=== PATIENT | male | born 1960 | race Caucasian/White ===

== ENCOUNTER 2023-07-09 09:04 | Emergency (ER) | payer OTHER, SELFPAY ==
[2023-07-09 09:14] VITALS: BP 145/88; PULSE 65; RESP 16; TEMP 36.5; O2SAT 100
--- NOTE | 2023-07-09 09:36 | ED.URI ---
HPI - URI/Sore Throat General Chief Complaint: Upper Respiratory Infection Stated Complaint: Congestion Source: patient and RN notes reviewed Mode of arrival: ambulatory Limitations: no limitations History of Present Illness HPI Narrative: 63-year-old male with a history of hypertension presented for complaint of sinus congestion and cough over 1 week. Taking rani seltzer. Denies sob, wheezing, n/v/d/f/c. Smokes 1 ppd. Hx [place], stents. MD elicited complaint: cough Related Data Home Medications Medication Instructions Recorded Confirmed aspirin 81 mg tablet,delayed 81 mg PO DAILY 01/28/20 07/09/23 release (Adult Low Dose Aspirin) metoprolol succinate 100 mg 150 mg PO DAILY 01/28/20 07/09/23 tablet,extended release 24 hr evolocumab 140 mg/mL subcutaneous 140 mg subcut ONCE 11/08/20 07/09/23 pen injector (Repatha SureClick) clopidogrel 75 mg tablet 75 mg PO DAILY 07/09/23 07/09/23 furosemide 20 mg tablet 20 mg PO DAILY 07/09/23 07/09/23 lisinopril 20 mg tablet 20 mg PO DAILY 07/09/23 07/09/23 Allergies Allergy/AdvReac Type Severity Reaction Status Date / Time No Known Allergies Allergy Verified 07/09/23 09:40 Review of Systems Review of Systems: CONSTITUTIONAL: Denies malaise, chills, sweats, fever EYES: Denies visual changes, redness, or discharge ENT: Reports rhinorrhea, congestion, sinus pain, denies otalgia, sore throat CARDIOVASCULAR: Denies chest pain, palpitations, edema RESPIRATORY: Reports cough, post nasal drainage. Denies dyspnea GASTROINTESTINAL: Denies abdominal pain, nausea, vomiting, diarrhea SKIN: Denies rash or itching MUSCULOSKELETAL: Denies myalgia [facility] Past Medical History Medical History (Updated 07/09/23 @ 09:52 by Priscilla Proctor APRN) Acute bacterial sinusitis BMI 28.0-28.9,adult CAD (coronary artery disease) Essential (primary) hypertension Screen for colon cancer Screening for prostate cancer Tobacco abuse Surgical History Surgical History (Updated 07/09/23 @ 09:52 by Priscilla Proctor APRN) History of PTCA Family History Family History Father Hypertension Family history of elevated blood lipids Cerebrovascular accident Mother Hypertension Family history of diabetes mellitus in first degree relative Family history of coronary artery disease Social History Social History Smoking packs per day: 1.5 Smoking cigarettes per day: 30.0 Years smoked: 30 Smoking pack-years: 45.00 Smoking status: Current every day smoker Tobacco type: cigarettes Alcohol intake: current Drinks per week: 4 Substance use: current Substance use type: marijuana Living arrangements: with family Occupation/Education: occupation Gender identity (if verbalized by the patient): Male Exam Narrative: GENERAL: Mildly Ill-appearing, nontoxic no acute distress. EYES: PERRLA, conjunctivae clear ENT: Mucous membranes moist. Nasal congestion. TM pearly bryant with dull light reflex bilaterally; no tragal tenderness. Oropharynx not erythematous without lesions or exudate, no drooling, no hoarseness, no trismus, uvula midline. No tripod positioning, muffled voice, soft palate or pharyngeal wall bulging NECK: Supple. No lymphadenopathy CHEST: Left lower lobe wheezing noted. Otherwise clear throughout. HEART: Regular rate and rhythm. No murmur heard. SKIN: Warm, dry, no rash. NEURO: Alert and oriented x3. PSYCH: Normal mood and affect Course Course Emergency Course: Patient is aware of diagnosis, understands and agrees to treatment plan. Anticipatory guidance given. Patient agrees to follow-up as directed and is aware of reasons to seek care at the emergency department. Portions of this record may have been created with voice recognition software Level of Care: Express Care Visit Vital Signs Vital signs: Vital Signs Temperat
== END 2023-07-09 09:51 | disposition home or self-care (01) ==
PROVIDERS: Emergency Provider Nurse Practitioner Family; PCP Family Medicine
DX: J06.9 Acute upper respiratory infection, unspecified (principal); F17.210 Nicotine dependence, cigarettes, uncomplicated; F12.90 Cannabis use, unspecified, uncomplicated; I25.10 Atherosclerotic heart disease of native coronary artery without angina pectoris; I10 Essential (primary) hypertension; Z79.82 Long term (current) use of aspirin; Z95.5 Presence of coronary angioplasty implant and graft
CPT/HCPCS: 99213; G0463

== ENCOUNTER 2024-11-16 15:08 | Emergency (ER) | payer OTHER, SELFPAY ==
[2024-11-16] VITALS (13 sets, daily range): BP systolic 127–158; BP diastolic 69–136; PULSE 62–118; RESP 11–24; TEMP 36.4–36.7; O2SAT 95–98
--- NOTE | ~2024-11-16 | XR_ITS ---
HISTORY: right shoulder pain no injury COMPARISON: None TECHNIQUE: 3 views of the right shoulder were performed FINDINGS: No acute fracture. Multiple well-circumscribed loose bodies are identified within the right glenohumeral joint space, li escobar representing calcific tendinosis. The remainder of the glenohumeral and the acromioclavicular joint space is otherwise maintained The visualized portion of the adjacent right lung is clear. The humeral head is well seated within the glenoid fossa. IMPRESSION: Likely calcific tendinosis without acute fracture or anterior dislocation. Reviewed, dictated and finalized at location A.
--- NOTE | ~2024-11-16 | XR_ITS ---
CHEST RADIOGRAPH, PA AND LATERAL CLINICAL HISTORY: chest tightness . COMPARISON: 10/21/2017 TECHNIQUE: PA and lateral views of the chest. FINDINGS The cardiomediastinal silhouette is unremarkable. Biapical scarring, unchanged. Interval development of multiple asymmetries within the bilateral lung sliver, when compared with 201 8 examination for which cross-sectional imaging (noncontrast enhanced CT examination of the chest) is recommended for further evaluation. IMPRESSION: No focal infiltrate or effusion. Interval development of multiple pulmonary asymmetries within the bilateral lung silver, when compare d with 2018 examination for which cross-sectional imaging (noncontrast enhanced CT examination of the chest) is recommended for further evaluation. Reviewed, dictated and finalized at location A. IMPRESSION: No focal infiltrate or effusion. Interval development of multiple pulmonary asymmetries within the bilateral isaiah g silver, when compared with 2018 examination for which cross-sectional imaging (noncontrast enhanced CT examination of the chest) is recommended for further evaluation.
--- OUTSIDE RECORDS SUMMARY | 2024-11-16 15:17 | XMS_ITS | Clinical Summary ---
Author Organization [facility] [address] Address [address] [place] [address] Care Team Providers Care Hematology Supervisor Name Role Phone Jorje Chavez MD Primary Care Provider + [phone] Rihca Blanton MD Unavailable [phone] Allergies Active Allergy Reactions Criticality Noted Date Comments Atorvastatin Other (See comments) High 07/26/2020 Myalgias, elevated CK Medications multivitamin tablet tablet take 1 tablet by oral route every day with food 0 0 11/22/19 13 Active aspirin 81 mg tablet take 2 Tablet by oral route every day 90 3 11/30/19 12 Active lisinopriL (PRINIVIL,ZESTRIL) 10 mg tablet TAKE 1 TABLET DAILY 90 tablet 06/18/19 20 Active clopidogreL (PLAVIX) 75 mg tabletIndications:m yocardial infarction prevention,cardiova scular disease Take 1 tablet (75 mg total) by mouth daily 30 tablet 11/20/19 21 Active metoprolol XL (TOPROL-XL) 50 mg extended release tablet Take 3 tablets (150 mg total) by mouth daily 90 tablet 11/20/19 21 Active Repatha SureClick 140 mg/mL pen injector ADMINISTER 1 ML UNDER THE SKIN EVERY 2 WEEKS 09/03/19 22 Active metoprolol XL (TOPROL-XL) 100 mg 24 hr tablet 08/07/20 22 Active albuterol HFA (PROVENTIL HFA,VENTOLIN HFA,PROAIR HFA) 90 mcg/actuation inhalerIndications: Acute nasopharyngitis Inhale 2 puffs every 6 (six) hours as needed for wheezing 3 each 4 12/27/19 22 Active Active Problems Problem Noted Date Diagnosed Date Coronary artery disease (CAD) excluded CAD (coronary artery disease) 11/16/2020 Overview (11/16/2020): Added automatically from request for surgery [id number] Immunizations Immunization Administration Dates Next Due Influenza, Quadrivalent, Spl it, Preservative Free, Intramuscular 02/08/2019 Surgical History Surgery Date Site/Laterality Comments OTHER SURGICAL HISTORY Surgical Vision Correction, LASIK Medical History Medical History Date Comments Cardiovascular disease Coronary Artery Disease Hx Other Medical Myocardial Infa rction Non STEMI Chronic obstructive pulmonary disease (HCC) COPD Family History Medical History Relation Name Comments Hypertension Father Hypertension; Heart attack Mother Myocardial Infa rction; Cause of : Myocardial Infarction Heart attack Mother's Brother 2 Myocardia l Infarction; Cause of : Myocardial Infarction Relation Name Status Comments Father Alive Mother (Age 70) Mother's Brother 1 (Age 70) Mother's Brother 2 Social History Tobacco Use Types Packs/Day Years Used Date Smoking Tobacco: Every Day Cigarettes 1 15 Smokeless Tobacco: Never Tobacco Cessation:Ready to Q uit: Not Asked; Counseling Given: Not Answered Alcohol Use Standard Drinks/Week Comments Yes 1 (1 standard drink = 0.6 oz pur e alcohol) Bi-weekly AUDIT-C Answer Date Recorded Q1: How often do you have a drink containing alc ohol? 2-3 times a week 11/18/2020 Q2: How many drinks containi ng alcohol do you have on a typical day when you are drinking? 3 or 4 11/18/2020 Q3: How often do you have si x or more drinks on one occasion? Monthly 11/18/2020 Personal Safety Answer Date Recorded Have you ever been in or are you currently in a harmful physical or emotional relationship or is someone making you feel afraid or unsafe? 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 Gender Identity Not on file Sexual Orientation Not on file Obstetrics History Last Filed Vital Signs Vital Sign Reading Time Taken Comments Blood Pressure 136/72 05/14/2023 10:45 AM DENTAL OFFICE MANAGER Pulse 75 05/14/2023 10:45 AM DENTAL OFFICE MANAGER Temperature 36.8 C (98.2 F) 05/14/2023 11:24 AM DENTAL OFFICE MANAGER Respiratory Rate 14 05/14/2023 10:45 AM DENTAL OFFICE MANAGER Oxygen Saturation 96% 05/14/2023 10:45 AM DENTAL OFFICE MANAGER Inhaled Oxygen Concentration - - Weight 106.6 kg (235 lb) 05/14/2023 8:38 AM DENTAL OFFICE MANAGER Height 193 cm (6' 4) 05/14/2023 8:38 AM DENTAL OFFICE MANAGER Body Mass Index 28.61 05/14/2023 8:38 AM DENTAL OFFICE MANAGER Plan of Treatment Health Maintenance Due Date Last Done Comments Colon Cancer Screening-Colonoscopy 1962 Depression Screening 1962 Hepatitis C Screening 1962 Prostate Cancer Screening-PSA 1962 DTaP/Tdap/Td Vaccine (1 - Tdap) 1973 Hepatitis B Screening 1980 Regular Well Visit/Exam 18-64 1980 Pneumococcal vaccine <65 (1 of 2 - PCV) 1981 Zoster Vaccine (1 of 2) 2012 Covid-19 Vaccine (2 - season) 12/15/202308/2020 Influenza Vaccine (#1) 2024 02/08/2019 Medical Devices Implanted Type Area Sheet Rock Sander Device Identifier Shelf Expiration Date Model / Serial / Lot [employer] [id number] Stent Drug Eluting S [facility] Mr [id number] - [id number] - [id number] Implanted:Qty: 1 on 11/18/2020 by Giorgio Nails MD at [facility] Stent N/A: Coronary [employer] 03/21/2021 [id number] / [id number] / [id number] Description: [employer] [id number] Synergy Xd Monorail 2.5mm 12mm 144cm Delivery System 1 Access - [id number] - [id number] Implanted:Qty: 1 on 11/18/2020 by Giorgio Nails MD at [facility] Stent N/A: Coronary [employer] 07/14/2022 [id number] / [id number] / [id number] Description:Ostial PDA Insurance [facility]/PPO Address: [place] [address] [facility] Address: [address] [place] [address] Advance Directives For more information, please contact: [phone] * Full Code (Latest Code Status on File) Date Activated Date Inactivated Comments 11/18/2020 2:39 PM 11/19/2020 3:42 PM Care Teams Hematology Supervisor Relationship Specialty Start Date End Date Jorje Chavez MD PCP - General 10/05/15 Richa Blanton MD [address] [place] [address] Consulting Physician Cardiovascular Disease 11/19/20
--- OUTSIDE RECORDS SUMMARY | 2024-11-16 15:17 | XMS_ITS | Referral Summary ---
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 Gender Identity Not on file Sexual Orientation Not on file Last Filed Vital Signs Vital Sign Reading Time Taken Comments Blood Pressure 136/72 05/14/2023 10:45 AM ALARM TECHNICIAN Pulse 75 05/14/2023 10:45 AM ALARM TECHNICIAN Temperature 36.8 C (98.2 F) 05/14/2023 11:24 AM ALARM TECHNICIAN Respiratory Rate 14 05/14/2023 10:45 AM ALARM TECHNICIAN Oxygen Saturation 96% 05/14/2023 10:45 AM ALARM TECHNICIAN Inhaled Oxygen Concentration - - Weight 106.6 kg (235 lb) 05/14/2023 8:38 AM ALARM TECHNICIAN Height 193 cm (6' 4) 05/14/2023 8:38 AM ALARM TECHNICIAN Body Mass Index 28.61 05/14/2023 8:38 AM ALARM TECHNICIAN Plan of Treatment Not on file Medical Devices Implanted Type Area Block Breaker Device Identifier Shelf Expiration Date Model / Serial / Lot [employer] [id number] St[facility] [id number] - [id number] - [id number] Implanted:Qty: 1 on 11/18/2020 by Giorgio Nails MD at [facility] Stent N/A: Coronary [employer] 03/21/2021 [id number] / [id number] / [id number] Description:LM [employer] [id number] Synergy Xd Monorail 2.5mm 12mm 144cm Delivery System 1 Access - [id number] - [id number] Implanted:Qty: 1 on 11/18/2020 by Giorgio Nails MD at [facility] Stent N/A: Coronary [employer] 07/14/2022 [id number] / [id number] / [id number] Description:Ostial PDA Insurance [facility] H[facility]/PPO Address: [facility] [address] [place] [id number] [address] [employer] [facility] H[facility]/PPO Address: [place] [address] Advance Directives For more information, please contact: [phone] * Full Code (Latest Code Status on File) Date Activated Date Inactivated Comments 11/18/2020 2:39 PM 11/19/2020 3:42 PM Care Teams Hanger Off Relationship Specialty Start Date End Date Jorje Chavez MD PCP - General 10/05/15 Richa Blanton MD [address] [place] [address] Consulting Physician Cardiovascular Disease 11/19/20
--- NOTE | 2024-11-16 15:24 | ED_ITS ---
HPI - Extremity Problem General Chief complaint: Extremity Problem,Nontraumatic <Dariusz Melendez APRN - Last Filed: 11/16/24 15:33> Stated complaint: R. shoulder, R. arm and R. leg pain <Dariusz Melendez APRN - Last Filed: 11/16/24 15:33> Time Seen by Provider: 11/16/24 19:22 <Dariusz Melendez APRN - Last Filed: 11/16/24 15:33> 64-year-old male presents to the ER complaining of right shoulder pain for approximately 4-5 days. Patient denies any injuries to his right arm or falls. Patient reports pain is constant is worse with certain movements of his right shoulder. He also reports chest tightness today that has been constant of his chest. Patient has a history of CAD status post stents. Patient denies any shortness of breath, jaw pain, left arm pain, nausea, vomiting, or any other symptoms. Patient is a current smoker, he smokes about 1 pack a day. Focused HPI: GENERAL: Well-appearing, well-nourished, and in no acute distress. HEAD: Normocephalic, atraumatic. CHEST: Clear to auscultation. ?No respiratory distress. HEART: Regular rate and rhythm.? NEURO: ?Alert and oriented x3. Patient screened in triage and initial orders placed.? ?Additional care and disposition to be based upon?diagnostic testing and treatment. <Dariusz Melendez APRN - Last Filed: 11/16/24 15:33> History of Present Illness HPI Narrative: Agree with HPI. Also has pain right lower extremity and walks limp. Ongoing over last month. In arm back trauma. Also has some dyspnea on exertion this been ongoing over last month as well. Has been unable to see his cardiology technologist. He is a smoker. <Jason Ibarra MD - Last Filed: 11/16/24 21:31> Related Data Home medications: Home Medications ?Medication ?Instructions ?Recorded ?Confirmed ?Last Taken ?Type metoprolol succinate 100 mg 150 mg PO DAILY 01/28/20 05/10/24 Unknown History tablet,extended release 24 hr evolocumab 140 mg/mL subcutaneous 140 mg subcut ONCE 11/08/20 05/10/24 Unknown History pen injector (Repatha ArashClick) clopidogrel 75 mg tablet 75 mg PO DAILY 07/09/23 05/10/24 Unknown History lisinopril 20 mg tablet 20 mg PO DAILY 07/09/23 05/10/24 Unknown History nicotine 21 mg/24 hr daily 05/10/24 Unknown History transdermal patch aspirin 81 mg tablet,delayed 162 mg PO DAILY 05/25/24 Unknown History release (Adult Low Dose Aspirin) <Dariusz Melendez APRN - Last Filed: 11/16/24 15:33> Allergies/Adverse reactions: Allergies Allergy/AdvReac Type Severity Reaction Status Date / Time No Known Allergies Allergy Verified 11/16/24 15:22 <Dariusz Melendez APRN - Last Filed: 11/16/24 15:33> Review of Systems 2 Review of Systems: All systems reviewed & are unremarkable except as noted in HPI and below <Jason Ibarra MD - Last Filed: 11/16/24 21:31> Constitutional: Constitutional: Reports no additional constitutional complaints <Jason Ibarra MD - Last Filed: 11/16/24 21:31> Cardiovascular: Cardiovascular: Reports no additional cardiovascular complaints <Jason Ibarra MD - Last Filed: 11/16/24 21:31> Respiratory: Respiratory: Reports no additional respiratory complaints < Jason Ibarra MD - Last Filed: 11/16/24 21:31> Gastrointestinal: Gastrointestinal: Reports no additional gastrointestinal complaints <Jason Ibarra MD - Last Filed: 11/16/24 21:31> Musculoskeletal: Musculoskeletal: Reports no additional musculoskeletal complaints <Jason Ibarra MD - Last Filed: 11/16/24 21:31> [facility] Past Medical History Medical History: Medical History CAD (coronary artery disease) Acute bacterial sinusitis Screening for prostate cancer Screen for colon cancer Tobacco abuse Essential (primary) hypertension BMI 28.0-28.9,adult <Dariusz Melendez APRN - Last Filed: 11/16/24 15:33> Surgical History Surgical History: Surgical History History of PTCA <Dariusz Melendez APRN - Last Filed: 11/16/24 15:33> Family History Family History: Family History Father Hypertension Family history of elevated blood lipids Cerebrovascular accident Mother Hypertension Family history of diabetes mellitus in first degree relative Family history of coronary artery disease <Dariusz Melendez APRN - Last Filed: 11/16/24 15:33> Social History Social History: Social History Smoking packs per day: 1.5 Smoking cigarettes per day: 30.0 Years smoked: 30 Smoking pack-years: 45.00 Smoking status: Current every day smoker Tobacco type: cigarettes Alcohol intake: current Drinks per week: 4 Substance use: current Substance use type: marijuana Living arrangements: with family Occupation/Education: occupation Gender identity (if verbalized by the patient): Male <Dariusz Melendez APRN - Last Filed: 11/16/24 15:33> Exam 2 Narrative: GENERAL: Well-appearing, well-nourished, and in no acute distress. HEAD: Normocephalic, atraumatic. ENT: Mucous membranes moist. CHEST: Clear to auscultation. No respiratory distress. HEART: Regular rate and rhythm. Normal peripheral pulses. ABDOMEN: Soft, nontender, nondistended. EXTREMITIES: Normal range of motion. No edema. SKIN: Warm, dry, no rash. NEURO: No upper lower extremity drift walks with a little bit of caution when bearing weight on right foot due to symptoms home. No slurred speech. No facial asymmetry. Alert and oriented x3. PSYCH: Normal mood and affect. <Jason Ibarra MD - Last Filed: 11/16/24 21:31> Course Course Emergency Course: Patient has pain in the right thigh with straight leg raise. He also has reproducible pain with physical movement right upper extremity with x-ray evidence of calcific tendinosis. Discussed chest x-ray and discussed need for outpatient follow-up for CT scan which patient verbalized understanding. He is breathing better after receiving nebulizer treatment and exert himself without shortness of breath. Patient does walk with a bit of a limp but has normal strength drink. He may have neuropathy in lower extremity. He may have nerve impingement given the discomfort in his leg. It is recommended he be started on any scaling anti-inflammatories follow up PCP for further treatment evaluation. He has follow-up appointment is already scheduled for tomorrow. <Jason Ibarra MD - Last Filed: 11/16/24 21:31> Vital Signs Vital signs: Vital Signs Temperature 97.5 F L 11/16/24 15:20 Pulse Rate 74 11/16/24 15:20 Respiratory Rate 16 11/16/24 15:20 Blood Pressure 127/69 11/16/24 15:20 Pulse Oximetry 98 11/16/24 15:20 Oxygen Delivery Room Air 11/16/24 15:20 Temperature 98.1 F 11/16/24 19:18 Pulse Rate 76 11/16/24 19:51 Respiratory Rate 20 11/16/24 19:51 Blood Pressure 151/80 H 11/16/24 19:18 Pulse Oximetry 97 11/16/24 19:18 Oxygen Delivery Room Air 11/16/24 19:18 <Dariusz Melendez APRN - Last Filed: 11/16/24 15:33> Vital Signs Temperature 97.5 F L 11/16/24 15:20 Pulse Rate 74 11/16/24 15:20 Respiratory Rate 16 11/16/24 15:20 Blood Pressure 127/69 11/16/24 15:20 Pulse Oximetry 98 11/16/24 15:20 Oxygen Delivery Room Air 11/16/24 15:20 Temperature 98.1 F 11/16/24 19:18 Pulse Rate 76 11/16/24 19:51 Respiratory Rate 20 11/16/24 19:51 Blood Pressure 151/80 H 11/16/24 19:18 Pulse Oximetry 97 11/16/24 19:18 Oxygen Delivery Room Air 11/16/24 19:18 <Jason Ibarra MD - Last Filed: 11/16/24 21:31> MDM - Extremity (Nontraumatic) Lab Data Result diagrams: 11/16/24 15:34 11/16/24 15:34 <Dariusz Melendez APRN - Last Filed: 11/16/24 15:33> Labs: Lab Results 11/16/24 11/16/24 Range/Units 15:34 19:47 WBC 8.0 (4.5-10.0) K/mm3 RBC 4.84 (4.6-6.20) M/mm3 Hgb 15.5 (14.0-18.0) g/dL Hct 45.2 (42.0-52.0) % MCV 93.4 (80-100) fl MCH 32.0 (26-34) pg MCHC 34.3 (32-36) g/dl RDW 13.0 (11.5-14.5) % Plt Count 223 (150-375) k/mm3 MPV 9.0 (7.4-10.4) fl Immature Gran % (Auto) 0.1 (0-0.5) % Neut % (Auto) 51.8 (45.5-73.1) % Lymph % (Auto) 33.5 (18.3-44.2) % Mcleod % (Auto) 7.8 (2.6-8.5) % Eos % (Auto) 5.8 H (0-4.4) % Baso % (Auto) 1.0 (0.2-1.2) % Lymph # (Auto) 2.68 (0.9-3.2) K/mm3 Mcleod # (Auto) 0.6 (0.1-0.6) K/mm3 Eos # (Auto) 0.5 H (0-0.3) K/mm3 Baso # (Auto) 0.1 (0.0-0.1) K/mm3 Abs Immat Gran (auto) 0.01 (0.00-0.031) K/mm3 Absolute Neuts (auto) 4.2 (1.3-6.7) K/mm3 Absolute Nucleated RBC 0.000 (0.0-0.012) K/mm3 Nucleated RBC % 0.0 (0.0-0.2) % PT 13.9 (11.1-14.7) Seconds INR 1.1 APTT 27.6 (22.3-36.8) Seconds Sodium 133 L (137-145) mmol/L Potassium 4.1 (3.4-5.0) mmol/L Chloride 104 (98-107) mmol/L Carbon Dioxide 22 (22-30) mmol/L Anion Gap 7 (4-12) mmol/L BUN 15 (9-20) mg/dL Creatinine 0.87 (0.7-1.3) mg/dL Estim Creat Clear Calc 95 ml/min Estimated GFR > 60 (59 - ) Glucose 106 (65-110) mg/dL Calcium 8.7 (8.4-10.2) mg/dL Total Bilirubin 0.9 (0.2-1.3) mg/dL AST 35 (17-59) U/L ALT 41 (6-50) U/L Alkaline Phosphatase 70 (38-126) U/L Troponin I < 0.012 < 0.012 (0.000-0.034) ng/mL Total Protein 7.1 (6.3-8.2) g/dL Albumin 4.0 (3.5-5.1) g/dL <Dariusz Melendez, DOUGH MIXING MACHINE OPERATOR - Last Filed: 11/16/24 15:33> Lab Results 11/16/24 11/16/24 Range/Units 15:34 19:47 WBC 8.0 (4.5-10.0) K/mm3 RBC 4.84 (4.6-6.20) M/mm3 Hgb 15.5 (14.0-18.0) g/dL Hct 45.2 (42.0-52.0) % MCV 93.4 (80-100) fl MCH 32.0 (26-34) pg MCHC 34.3 (32-36) g/dl RDW 13.0 (11.5-14.5) % Plt Count 223 (150-375) k/mm3 MPV 9.0 (7.4-10.4) fl Immature Gran % (Auto) 0.1 (0-0.5) % Neut % (Auto) 51.8 (45.5-73.1) % Lymph % (Auto) 33.5 (18.3-44.2) % Mcleod % (Auto) 7.8 (2.6-8.5) % Eos % (Auto) 5.8 H (0-4.4) % Baso % (Auto) 1.0 (0.2-1.2) % Lymph # (Auto) 2.68 (0.9-3.2) K/mm3 Mcleod # (Auto) 0.6 (0.1-0.6) K/mm3 Eos # (Auto) 0.5 H (0-0.3) K/mm3 Baso # (Auto) 0.1 (0.0-0.1) K/mm3 Abs Immat Gran (auto) 0.01 (0.00-0.031) K/mm3 Absolute Neuts (auto) 4.2 (1.3-6.7) K/mm3 Absolute Nucleated RBC 0.000 (0.0-0.012) K/mm3 Nucleated RBC % 0.0 (0.0-0.2) % PT 13.9 (11.1-14.7) Seconds INR 1.1 APTT 27.6 (22.3-36.8) Seconds Sodium 133 L (137-145) mmol/L Potassium 4.1 (3.4-5.0) mmol/L Chloride 104 (98-107) mmol/L Carbon Dioxide 22 (22-30) mmol/L Anion Gap 7 (4-12) mmol/L BUN 15 (9-20) mg/dL Creatinine 0.87 (0.7-1.3) mg/dL Estim Creat Clear Calc 95 ml/min Estimated GFR > 60 (59 - ) Glucose 106 (65-110) mg/dL Calcium 8.7 (8.4-10.2) mg/dL Total Bilirubin 0.9 (0.2-1.3) mg/dL AST 35 (17-59) U/L ALT 41 (6-50) U/L Alkaline Phosphatase 70 (38-126) U/L Troponin I < 0.012 < 0.012 (0.000-0.034) ng/mL Total Protein 7.1 (6.3-8.2) g/dL Albumin 4.0 (3.5-5.1) g/dL <Jason Ibarra MD - Last Filed: 11/16/24 21:31> Imaging Data Radiologist's impression: ITS Impressions Chest X-Ray 11/16/24 15:48 IMPRESSION: No focal infiltrate or effusion. Interval development of multiple pulmonary asymmetries within the bilateral lung silver, when compared with 2018 examination for which cross-sectional imaging (noncontrast enhanced CT examination of the chest) is recommended for further evaluation. Shoulder X-Ray 11/16/24 15:53 IMPRESSION: Likely calcific tendinosis without acute fracture or anterior dislocation. <Jason Ibarra MD - Last Filed: 11/16/24 21:31> ECG Data EKG #1: ECG completion date: 11/16/24 <Jason Ibarra MD - Last Filed: 11/16/24 21:31> ECG completion time: 19:53 <Jason Ibarra MD - Last Filed: 11/16/24 21:31> EKG Interpretation: normal rate (62), sinus rhythm, no ST changes, normal QRS and normal QT <Jason Ibarra MD - Last Filed: 11/16/24 21:31> Discharge Plan Discharge Clinical Impression: Calcific tendonitis of right shoulder, Wheezing, Abnormal chest x-ray <Dariusz Melendez APRN - Last Filed: 11/16/24 15:33> Patient Disposition: Home <Dariusz Melendez APRN - Last Filed: 11/16/24 15:33> Condition: Stable <Dariusz Melendez APRN - Last Filed: 11/16/24 15:33> Instructions: Calcific Tendinitis (ED), Shortness of Breath (ED) <Dariusz Melendez APRN - Last Filed: 11/16/24 15:33> Additional Instructions: You had an abnormal chest x-ray. You need a CT scan for further evaluation. Also had wheezing which improved with a breathing treatment. Take albuterol help with shortness of breath. Follow-up with your primary care doctor. Take anti-inflammatories to help the discomfort in your right shoulder and leg. <Dariusz Melendez APRN - Last Filed: 11/16/24 15:33> Patient Language: Faroese <Dariusz Melendez APRN - Last Filed: 11/16/24 15:33> Prescriptions: New naproxen 375 mg tablet 375 mg PO BID Qty: 14 0RF albuterol sulfate 90 mcg/actuation HFA aerosol inhaler 2 puff inhalation QID PRN (Reason: shortness of breath or wheezing) Qty: 8.5 0RF No Action nicotine 21 mg/24 hr patch 24 hour albuterol sulfate 90 mcg/actuation HFA aerosol inhaler 2 puff INHALATION QID PRN (Reason: shortness of breath or wheezing) Qty: 8.5 0RF clopidogrel 75 mg tablet 75 mg PO DAILY lisinopril 20 mg tablet 20 mg PO DAILY metoprolol succinate 100 mg tablet extended release 24 hr 150 mg PO DAILY Repatha SureClick 140 mg/mL pen injector 140 mg subcut ONCE aspirin [Adult Low Dose Aspirin] 81 mg tablet,delayed release (DR/EC) 162 mg PO DAILY <Dariusz Melendez APRN - Last Filed: 11/16/24 15:33> Follow-up/Referrals: Jorje Chavez MD [Primary Care Provider] - 1 Day <Dariusz Melendez APRN - Last Filed: 11/16/24 15:33>
--- NOTE | 2024-11-16 15:25 | ECG_ITS ---
Test Date: 2024-11-16 15:29:48 Measurements Intervals Sarah Ann Rate: 65 P: 86 MA: 199 QRS: 67 QRSD: 100 T: 67 QT: 376 QTc: 393 Interpretive Statements SINUS RHYTHM WITH SINUS ARRHYTHMIA BASELINE ARTIFACT- I, III, AVR, AVL NORMAL ECG No previous ECG available for comparison Electronically Signed On 11-16-2024 15:37:04 CDT by Wild Wood D.O.
[2024-11-16 15:41] LABS: Hematocrit 45.2 % (42.0-52.0); Hemoglobin 15.5 g/dL (14.0-18.0); Immature Granulocyte Percent A 0.1 % (0-0.5); Lymphocytes Absolute Auto 2.68 K/mm3 (0.9-3.2); Mean Corpuscular HGB Conc 34.3 g/dl (32-36); Mean Corpuscular Hemoglobin 32.0 pg (26-34); Mean Corpuscular Volume 93.4 fl (80-100); Nucleated Red Blood Cells Absolute Auto 0.000 K/mm3 (0.0-0.012); Nucleated Red Blood Cells Perc 0.0 % (0.0-0.2); Platelet Count Result 223 k/mm3 (150-375); Red Blood Count 4.84 M/mm3 (4.6-6.20); White Blood Count 8.0 K/mm3 (4.5-10.0)
[2024-11-16 15:54] LABS: Alanine Aminotransferase 41 U/L (6-50); Albumin Level 4.0 g/dL (3.5-5.1); Alkaline Phosphatase 70 U/L (38-126); Anion Gap 7 mmol/L (4-12); Aspartate Amino Transferase 35 U/L (17-59); Bilirubin,Total 0.9 mg/dL (0.2-1.3); Blood Urea Nitrogen 15 mg/dL (9-20); Calcium 8.7 mg/dL (8.4-10.2); Carbon Dioxide 22 mmol/L (22-30); Chloride 104 mmol/L (98-107); Estimated CRCL calculation 95 ml/min; Estimated Glomerular Filt Rate > 60; Glucose 106 mg/dL (65-110); INR 1.1; Partial Thromboplastin Time 27.6 Seconds (22.3-36.8); Potassium 4.1 mmol/L (3.4-5.0); Prothrombin Time 13.9 Seconds (11.1-14.7); Sodium 133 mmol/L (137-145); Total Protein 7.1 g/dL (6.3-8.2)
[2024-11-16 16:06] LABS: Troponin I < 0.012 ng/mL (0.000-0.034)
--- NOTE | 2024-11-16 19:50 | ECG_ITS ---
Test Date: 2024-11-16 19:53:11 Measurements Intervals Rodessa Rate: 62 P: 75 NM: 206 QRS: 65 QRSD: 97 T: 66 QT: 394 QTc: 402 Interpretive Statements SINUS RHYTHM BORDERLINE AV CONDUCTION DELAY BASELINE ARTIFACT- I, III, AVR, AVL, V1-V6 BORDERLINE ECG Compared to ECG 11/16/2024 15:29:48 NO SIGNIFICANT CHANGE Electronically Signed On 11-16-2024 21:00:00 CDT by Wild Wood D.O.
--- OUTSIDE RECORDS SUMMARY | 2024-11-16 19:51 | XMS_ITS | Referral Summary ---
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 Gender Identity Not on file Sexual Orientation Not on file Last Filed Vital Signs Vital Sign Reading Time Taken Comments Blood Pressure 136/72 05/14/2023 10:45 AM CAGE/VAULT SUPERVISOR Pulse 75 05/14/2023 10:45 AM CAGE/VAULT SUPERVISOR Temperature 36.8 C (98.2 F) 05/14/2023 11:24 AM CAGE/VAULT SUPERVISOR Respiratory Rate 14 05/14/2023 10:45 AM CAGE/VAULT SUPERVISOR Oxygen Saturation 96% 05/14/2023 10:45 AM CAGE/VAULT SUPERVISOR Inhaled Oxygen Concentration - - Weight 106.6 kg (235 lb) 05/14/2023 8:38 AM CAGE/VAULT SUPERVISOR Height 193 cm (6' 4) 05/14/2023 8:38 AM CAGE/VAULT SUPERVISOR Body Mass Index 28.61 05/14/2023 8:38 AM CAGE/VAULT SUPERVISOR Plan of Treatment Not on file Medical Devices Implanted Type Area Asbestos Microscopist Device Identifier Shelf Expiration Date Model / Serial / Lot [employer] [id number] [id number] - [id number] - [id number] Implanted:Qty: 1 on 11/18/2020 by Giorgio Nails MD at [facility] Stent N/A: Coronary [employer] 03/21/2021 [id number] / [id number] / [id number] Description:LM [employer] [id number] Synergy Xd Monorail 2.5mm 12mm 144cm Delivery System 1 Access - [id number] - [id number] Implanted:Qty: 1 on 11/18/2020 by Giorgio Nails MD at [facility] Stent N/A: Coronary [employer] 07/14/2022 [id number] / [id number] / [id number] Description:Ostial PDA Insurance CHOICE PLUS C CHOICE PLUS Advance Directives For more information, please contact: [phone] * Full Code (Latest Code Status on File) Date Activated Date Inactivated Comments 11/18/2020 2:39 PM 11/19/2020 3:42 PM Care Teams Legislative Analyst Relationship Specialty Start Date End Date Jorje Chavez MD PCP - General 10/05/15 Richa Blanton MD [address] [place] [address] Consulting Physician Cardiovascular Disease 11/19/20
--- OUTSIDE RECORDS SUMMARY | 2024-11-16 19:51 | XMS_ITS | Clinical Summary ---
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 Gender Identity Not on file Sexual Orientation Not on file Obstetrics History Last Filed Vital Signs Vital Sign Reading Time Taken Comments Blood Pressure 136/72 05/14/2023 10:45 AM SENIOR FINANCIAL ACCOUNTANT Pulse 75 05/14/2023 10:45 AM SENIOR FINANCIAL ACCOUNTANT Temperature 36.8 C (98.2 F) 05/14/2023 11:24 AM SENIOR FINANCIAL ACCOUNTANT Respiratory Rate 14 05/14/2023 10:45 AM SENIOR FINANCIAL ACCOUNTANT Oxygen Saturation 96% 05/14/2023 10:45 AM SENIOR FINANCIAL ACCOUNTANT Inhaled Oxygen Concentration - - Weight 106.6 kg (235 lb) 05/14/2023 8:38 AM SENIOR FINANCIAL ACCOUNTANT Height 193 cm (6' 4) 05/14/2023 8:38 AM SENIOR FINANCIAL ACCOUNTANT Body Mass Index 28.61 05/14/2023 8:38 AM SENIOR FINANCIAL ACCOUNTANT Plan of Treatment Health Maintenance Due Date [...] 2024 02/08/2019 Medical Devices Implanted Type Area Maintenance Representative Device Identifier Shelf Expiration Date Model / Serial / Lot [employer] [id number] Stent Drug Eluting S [facility] Mr [id number] - [id number] - [id number] Implanted:Qty: 1 on 11/18/2020 by Giorgio Nails MD at [facility] Stent N/A: Coronary [employer] 03/21/2021 [id number] / [id number] / [id number] Description: [employer] [id number] Synergy Xd Monorail 2.5mm 12mm 144cm Delivery System 1 Access - [id number] - [id number] Implanted:Qty: 1 on 11/18/2020 by Giorgio Nails MD at [facility] Stent N/A: Coronary [employer] 07/14/2022 [id number] / [id number] / [id number] Description:Ostial PDA Insurance CHOICE PLUS CHOICE PLUS Advance Directives For more information, please contact: [phone] * Full Code (Latest Code Status on File) Date Activated Date Inactivated Comments 11/18/2020 2:39 PM 11/19/2020 3:42 PM Care Teams Data Librarian Relationship Specialty Start Date End Date Jorje Chavez MD PCP - General 10/05/15 Richa Blanton MD [address] [place] [address] Consulting Physician Cardiovascular Disease 11/19/20
[2024-11-16 20:18] LABS: Troponin I < 0.012 ng/mL (0.000-0.034)
== END 2024-11-16 21:23 | disposition home or self-care (01) ==
PROVIDERS: Emergency Provider Emergency Medicine; PCP Family Medicine
DX: M75.31 Calcific tendinitis of right shoulder (principal); R06.2 Wheezing; R91.8 Other nonspecific abnormal finding of lung field; M79.651 Pain in right thigh; I25.10 Atherosclerotic heart disease of native coronary artery without angina pectoris; I10 Essential (primary) hypertension; F17.210 Nicotine dependence, cigarettes, uncomplicated; Z95.5 Presence of coronary angioplasty implant and graft; Z79.82 Long term (current) use of aspirin
CPT/HCPCS: 36415; 71046; 73030; 80053; 84484; 85025; 85610; 85730; 93005; 94640; 99284

== ENCOUNTER 2024-12-09 13:34 | Outpatient (CLI) | payer OTHER, SELFPAY ==
--- NOTE | ~2024-12-09 | CT_ITS ---
EXAMINATION: CT diagnostic chest wo con, 12/09/2024 13:34 CDT HISTORY: Solitary pulmonary nodule COMPARISON: Comparison CT abdomen 10/19/2014 TECHNIQUE: CT scan of the chest was performed without IV contrast. One or more of the following dose reduction techniques were used: automated exposure control, adjustment of the mA and/or kV according to patient size, use of iterative reconstruction technique. FINDINGS: No significant coronary calcification is present ([id number]) LUNGS: No tracheomalacia. No bronchiectasis. Moderate emphysematous changes with cystic change in the lung apices but no bullous formation. Bilateral moderate pulmonary fibrotic changes with early honeycombing noted. Apical scarring is evident bilaterally. Scattered calcified granulomas. Within the right middle artery there is a 4 x 6 mm micronodule possible intrapulmonary lymph node. HEART AND PERICARDIUM: Within normal limits. AORTA: Normal caliber aorta. ADENOPATHY/MEDIASTINUM: None. LIMITED VIEWS OF THE ABDOMEN: Within normal limits. OSSEOUS STRUCTURES: No sclerotic or lytic lesions. No acute fractures are identified. Moderate loss of vertebral azygos contrast throughout the visualized spine. OVERLYING SOFT TISSUES: Unremarkable. THYROID: The thyroid is unremarkable. IMPRESSION: 1. Chronic changes detailed above. Right middle lobe micronodule probable intrapulmonary lymph node. This appears stable. Reviewed, dictated and finalized at location A. IMPRESSION: 1. Chronic changes detailed above. Right middle lobe micronodule probable intra pulmonary lymph node. This appears stable.
== END 2024-12-09 13:35 | disposition home or self-care (01) ==
LOC: MICIMG 13:35
PROVIDERS: PCP Family Medicine; Visit Provider Family Medicine
DX: R91.1 Solitary pulmonary nodule (principal)
CPT/HCPCS: 71250